=== PATIENT | female | born 1945 | race Caucasian/White ===

== ENCOUNTER → 2020-04-06 09:23 | Outpatient (BNVA) | payer MEDICARE, OTHER, SELFPAY | PROVIDERS: Visit Provider Dermatology | DX: L28.1 Prurigo nodularis (principal); D18.01 Hemangioma of skin and subcutaneous tissue; L81.4 Other melanin hyperpigmentation; L82.1 Other seborrheic keratosis | CPT/HCPCS: 99203; 99204 ==

== ENCOUNTER → 2021-12-12 08:25 | Outpatient (BNVA) | payer MEDICARE, OTHER, SELFPAY | PROVIDERS: Visit Provider Internal Medicine Pulmonary Disease | DX: D64.9 Anemia, unspecified (principal); J45.909 Unspecified asthma, uncomplicated; D68.9 Coagulation defect, unspecified; I10 Essential (primary) hypertension; E78.6 Lipoprotein deficiency; E04.2 Nontoxic multinodular goiter; J84.116 Cryptogenic organizing pneumonia; R06.02 Shortness of breath; U07.1 COVID-19 | CPT/HCPCS: 82785; 86003; 86225; 86235; 99204 ==

== ENCOUNTER → 2022-01-30 09:19 | Outpatient (BNVA) | payer MEDICARE, OTHER, SELFPAY | PROVIDERS: Visit Provider Internal Medicine Pulmonary Disease | DX: J45.909 Unspecified asthma, uncomplicated (principal); R76.8 Other specified abnormal immunological findings in serum; J84.116 Cryptogenic organizing pneumonia; R05.3 Chronic cough; U09.9 Post COVID-19 condition, unspecified; D50.9 Iron deficiency anemia, unspecified | CPT/HCPCS: 99214 ==

== ENCOUNTER 2022-02-14 11:21 | Outpatient (CLI) | payer MEDICARE, OTHER, SELFPAY ==
--- NOTE | 2022-02-14 12:30 | CT_ITS ---
WS: [id number] CT CHEST WITHOUT INTRAVENOUS CONTRAST HISTORY: assess resolution of pneumonia TECHNIQUE: Contiguous 5 mm axial imaging performed on the thorax. Coronal and sagittal reformats are submitted. All CT scans at [facility] use at least one of these dose optimization techniques: automated exposure control; mA and/or kV adjustment per patient size (includes targeted exams where dose is matched to clinical indication); or iterative reconstruction. CONTRAST: None DLP: 485.01 mGy.cm COMPARISON: None available. Lungs and central airway: Mild pulmonary hyperexpansion. No pneumonia or mass is identified. Pleura: Normal. No pleural effusion. Heart and pericardium: The heart is markedly enlarged. LEFT atrium measures at least 6.6 cm in diamet er. No pericardial effusion. Mediastinum and stefania: No mediastinum or hilar adenopathy. Vessels: Mild pulmonary hypertension. Mild atherosclerosis aorta. Chest wall and lower neck: Several RIGHT thyroid nodules with the largest measuring 13 mm in diameter . No axillary lymph nodes. Upper abdomen: Abnormal heterogeneity throughout the liver. The hepatic veins are enlarged and engorg ed probably due to regurgitation or hepatic venous congestion. There are additional scattered foci of low attenuation which are ill-defined and need to be further evaluated. Gallbladder is contracted. D istal splenic artery aneurysms. Osseous structures: Increase in thoracic kyphosis. Soft tissue mass with internal fat over the RIGHT lateral chest wall adjacent to the scapula. Most consistent with elastofibroma dorsi. CT/CT chest wo con [id number] IMPRESSION: 1. No pneumonia. 2. Abnormal attenuation throughout the liver. This needs to be further evaluat ed for possible underlying metastatic disease. Recommend CT abdomen and pelvis with IV and oral contrast. 3. Marked enlargement of the heart. 4. Distal splenic artery aneurysms.
--- NOTE | 2022-02-14 13:58 | PFTS_ITS ---
Date of Study:02/14/22 Date of Dictation: 02/15/2022 MECHANICS: Prebronchodilator forced vital capacity (FVC) is normal. Prebronchodilator forced expiratory volume in one second (FEV1) is normal. FEV1/FVC is normal. There is no postbronchodilator study. FLOW VOLUME LOOP: Normal LUNG VOLUMES: Total lung capacity (TLC) is reduced. Residual volume (RV) is reduced. DIFFUSING CAPACITY FOR CARBON MONOXIDE: Normal . INTERPRETATION: The prebronchodilator spirometry is normal. There is no postbronchodilator study. Lung volumes show restriction. Gas transfer is normal. Clinical correlation recommended. MTDD
== END 2022-02-14 11:22 | disposition home or self-care (01) ==
LOC: RT 11:26
PROVIDERS: Visit Provider Internal Medicine Pulmonary Disease
DX: R06.02 Shortness of breath (principal); J84.116 Cryptogenic organizing pneumonia; I51.7 Cardiomegaly; I72.8 Aneurysm of other specified arteries
CPT/HCPCS: 71250; 94010; 94726; 94729

== ENCOUNTER → 2022-03-01 09:53 | Outpatient (BNVA) | payer MEDICARE, OTHER, SELFPAY | PROVIDERS: PCP Internal Medicine; Visit Provider Internal Medicine Pulmonary Disease | DX: R06.02 Shortness of breath (principal); R76.8 Other specified abnormal immunological findings in serum; R05.3 Chronic cough; U09.9 Post COVID-19 condition, unspecified; J45.20 Mild intermittent asthma, uncomplicated; I50.9 Heart failure, unspecified; K74.60 Unspecified cirrhosis of liver; D50.9 Iron deficiency anemia, unspecified; I78.0 Hereditary hemorrhagic telangiectasia; Z77.22 Contact with and (suspected) exposure to environmental tobacco smoke (acute) (chronic) | CPT/HCPCS: 99214 ==

== ENCOUNTER → 2022-08-09 08:40 | Outpatient (BNVA) | payer MEDICARE, OTHER, SELFPAY | PROVIDERS: PCP Internal Medicine; Visit Provider Nurse Practitioner Family | DX: D48.9 Neoplasm of uncertain behavior, unspecified (principal); L57.0 Actinic keratosis; L82.1 Other seborrheic keratosis; L82.0 Inflamed seborrheic keratosis; L28.1 Prurigo nodularis; Z85.828 Personal history of other malignant neoplasm of skin | CPT/HCPCS: 88305 ==

== ENCOUNTER → 2022-10-03 13:59 | Outpatient (BNVA) | payer MEDICARE, OTHER, SELFPAY | PROVIDERS: PCP Internal Medicine; Visit Provider Dermatology | DX: L28.1 Prurigo nodularis (principal) | CPT/HCPCS: 88305 ==

== ENCOUNTER → 2022-11-18 14:08 | Outpatient (BNVA) | payer MEDICARE, OTHER, SELFPAY | PROVIDERS: PCP Internal Medicine; Visit Provider Internal Medicine Pulmonary Disease | DX: J84.116 Cryptogenic organizing pneumonia (principal); R76.8 Other specified abnormal immunological findings in serum; J98.4 Other disorders of lung; R05.3 Chronic cough; U09.9 Post COVID-19 condition, unspecified; J45.20 Mild intermittent asthma, uncomplicated; K74.60 Unspecified cirrhosis of liver; I50.9 Heart failure, unspecified; Z77.22 Contact with and (suspected) exposure to environmental tobacco smoke (acute) (chronic); D50.9 Iron deficiency anemia, unspecified; I78.0 Hereditary hemorrhagic telangiectasia; I51.7 Cardiomegaly | CPT/HCPCS: 99214 ==

== ENCOUNTER 2022-11-26 07:20 | Outpatient (CLI) | payer MEDICARE, OTHER, SELFPAY ==
--- NOTE | 2022-11-26 07:30 | CTR_ITS ---
PROCEDURE INFORMATION: Exam: CT Chest Without Contrast; Diagnostic Exam date and time: 11/26/2022 7:35 AM Age: 77 years old Clinical indication: Condition or disease; Lung condition and disease; Other: Interstital lung disease; Patient HX: Interstitial lung disease, hrct; Additional info: High resolution for suspected interstital lung disease TECHNIQUE: Imaging protocol: Diagnostic computed tomography of the chest without contrast. Radiation optimization: All CT scans at this facility use at least one of these dose optimization techniques: automated exposure control; mA and/or kV adjustment per patient size (includes targeted exams where dose is matched to clinical indication); or iterative reconstruction. REPORTING DATA: Count of CT and Cardiac NM exams in prior 12 months: This patient has received [address] and 0 known cardiac nuclear medicine studies in the 12 months prior to the current study. COMPARISON: CT chest wo con [id number] 02/14/2022 12:11 PM RADIATION DOSE METRICS: Total DLP (mGy-cm): 624.11 FINDINGS: Thyroid: 1 cm nodule noted in the right thyroid lobe. Lungs: No areas of reticulation, traction bronchiectasis, or honeycombing. No consolidation. No masses. Pleural spaces: No pneumothorax. No pleural effusion. Heart: Cardiomegaly. No pericardial effusion. Lymph nodes: No enlarged lymph nodes. Vasculature: No aortic aneurysm. Bones/joints: No acute fracture. Soft tissues: Unremarkable. CT/CT chest wo con [id number] IMPRESSION: No findings to suggest interstitial lung disease. COMMENTS: Consistent with the [employer]'s Incidental Findings Committee white paper (J Am Ariel Radiol 2015): In patients aged 35 years and older with an incidental thyroid nodule equal to or greater than 1.[address], MRI or extrathyroidal US, further evaluation with dedicated thyroid US is recommended for patients with normal life expectancy and without comorbidities. For smaller nodules without suspicious features, no further evaluation or follow up is recommended.
== END 2022-11-26 07:21 | disposition home or self-care (01) ==
LOC: RAD 07:27
PROVIDERS: PCP Internal Medicine; Visit Provider Internal Medicine Pulmonary Disease
DX: J98.4 Other disorders of lung (principal)
CPT/HCPCS: 71250

== ENCOUNTER → 2022-12-31 13:19 | Outpatient (BNVA) | payer MEDICARE, OTHER, SELFPAY | PROVIDERS: PCP Internal Medicine; Visit Provider Internal Medicine Pulmonary Disease | DX: R06.02 Shortness of breath (principal); J84.116 Cryptogenic organizing pneumonia; J45.909 Unspecified asthma, uncomplicated; R76.8 Other specified abnormal immunological findings in serum; J45.20 Mild intermittent asthma, uncomplicated; Z86.16 Personal history of COVID-19; I51.7 Cardiomegaly; I50.9 Heart failure, unspecified; I27.20 Pulmonary hypertension, unspecified; I78.0 Hereditary hemorrhagic telangiectasia; D50.9 Iron deficiency anemia, unspecified | CPT/HCPCS: 99214 ==

== ENCOUNTER → 2023-02-14 09:57 | Outpatient (BNVA) | payer MEDICARE, OTHER, SELFPAY | PROVIDERS: PCP Internal Medicine; Visit Provider Nurse Practitioner Family | DX: S40.911A Unspecified superficial injury of right shoulder, initial encounter (principal); S40.912A Unspecified superficial injury of left shoulder, initial encounter; S20.402A Unspecified superficial injuries of left back wall of thorax, initial encounter; S30.91XA Unspecified superficial injury of lower back and pelvis, initial encounter; L30.0 Nummular dermatitis; L81.4 Other melanin hyperpigmentation; D22.5 Melanocytic nevi of trunk; L85.3 Xerosis cutis; L57.8 Other skin changes due to chronic exposure to nonionizing radiation; Z85.828 Personal history of other malignant neoplasm of skin; Y99.9 Unspecified external cause status | CPT/HCPCS: 99214 ==

== ENCOUNTER → 2023-03-05 11:17 | Outpatient (BNVA) | payer MEDICARE, OTHER, SELFPAY | PROVIDERS: PCP Internal Medicine; Visit Provider Internal Medicine Rheumatology | DX: Z79.899 Other long term (current) drug therapy (principal); M67.911 Unspecified disorder of synovium and tendon, right shoulder; R76.8 Other specified abnormal immunological findings in serum | CPT/HCPCS: 36415; 73030; 86200; 86431; 99204 ==

== ENCOUNTER → 2023-03-17 09:34 | Outpatient (BNVA) | payer MEDICARE, OTHER, SELFPAY | PROVIDERS: PCP Internal Medicine; Visit Provider Nurse Practitioner Family | DX: L30.0 Nummular dermatitis (principal); L81.4 Other melanin hyperpigmentation; D22.5 Melanocytic nevi of trunk; Z85.828 Personal history of other malignant neoplasm of skin; F42.4 Excoriation (skin-picking) disorder; L57.8 Other skin changes due to chronic exposure to nonionizing radiation; L85.3 Xerosis cutis | CPT/HCPCS: 99214 ==

== ENCOUNTER → 2023-06-17 09:21 | Outpatient (BNVA) | payer MEDICARE, OTHER, SELFPAY | PROVIDERS: PCP Internal Medicine; Visit Provider Nurse Practitioner Family | DX: L29.8 Other pruritus (principal); E61.1 Iron deficiency; L57.8 Other skin changes due to chronic exposure to nonionizing radiation; L81.4 Other melanin hyperpigmentation; D22.72 Melanocytic nevi of left lower limb, including hip; Z08 Encounter for follow-up examination after completed treatment for malignant neoplasm; Z85.828 Personal history of other malignant neoplasm of skin; L57.0 Actinic keratosis | CPT/HCPCS: 17000; 99214 ==

== ENCOUNTER → 2023-11-03 10:34 | Outpatient (BNVA) | payer MEDICARE, OTHER, SELFPAY | PROVIDERS: PCP Internal Medicine; Visit Provider Internal Medicine Pulmonary Disease | DX: R06.02 Shortness of breath (principal); J45.909 Unspecified asthma, uncomplicated; R76.8 Other specified abnormal immunological findings in serum; D50.9 Iron deficiency anemia, unspecified; Z86.16 Personal history of COVID-19 | CPT/HCPCS: 99214 ==

== ENCOUNTER → 2023-11-12 14:03 | Outpatient (BNVA) | payer MEDICARE, OTHER, SELFPAY | PROVIDERS: PCP Internal Medicine; Visit Provider Nurse Practitioner Family | DX: D48.5 Neoplasm of uncertain behavior of skin (principal); L28.1 Prurigo nodularis; L29.8 Other pruritus; L91.0 Hypertrophic scar; Z85.828 Personal history of other malignant neoplasm of skin | CPT/HCPCS: 11102; 99214 ==

== ENCOUNTER → 2023-12-16 11:28 | Outpatient (BNVA) | payer MEDICARE, OTHER, SELFPAY | PROVIDERS: PCP Internal Medicine; Visit Provider Dermatology | DX: Z48.02 Encounter for removal of sutures (principal) | CPT/HCPCS: 99212; 99398 ==

== ENCOUNTER → 2024-01-16 08:23 | Outpatient (BNVA) | payer MEDICARE, OTHER, SELFPAY | PROVIDERS: PCP Internal Medicine; Visit Provider Nurse Practitioner Family | DX: L28.1 Prurigo nodularis (principal); L29.8 Other pruritus; L91.0 Hypertrophic scar; Z85.820 Personal history of malignant melanoma of skin; Z85.828 Personal history of other malignant neoplasm of skin | CPT/HCPCS: 17110; 99214 ==

== ENCOUNTER → 2025-04-05 14:31 | Outpatient (BNVA) | payer MEDICARE, OTHER, SELFPAY | PROVIDERS: PCP Internal Medicine; Visit Provider Internal Medicine | DX: J45.30 Mild persistent asthma, uncomplicated (principal); J44.9 Chronic obstructive pulmonary disease, unspecified | CPT/HCPCS: 36415; 85025; 86003; 99214 ==

== ENCOUNTER → 2025-06-21 13:11 | Outpatient (BNVA) | payer MEDICARE, OTHER, SELFPAY | PROVIDERS: PCP Internal Medicine; Visit Provider Nurse Practitioner Family | DX: L28.1 Prurigo nodularis (principal); L20.89 Other atopic dermatitis | CPT/HCPCS: 99214 ==